=== PATIENT | female | born 1945 | race Caucasian/White ===

== ENCOUNTER → 2017-07-08 | Outpatient (CLI) | payer MEDICARE, BC ==
--- NOTE | 2017-07-08 22:44 | MR ---
EXAMINATION TYPE: MR lumbar spine wo con DATE OF EXAM: 07/08/2017 COMPARISON: Prior MRI lumbar spine January 14, 2015. Prior CT lumbar spine September 09, 2016. HISTORY: HX of Polio, currently having back pain TECHNIQUE: Multiplanar, multisequence imaging of the lumbar spine is performed without IV contrast. FINDINGS: Sagittal images of the lumbar spine show vertebral body heights to remain satisfactory. The re is redemonstration of straightening of lumbar spine. There is redemonstration of prominent posteri or epidural fat or epidural lipomatosis most prominent at L2-L3 level causing posterior spinal canal effacement. There is multilevel disc desiccation redemonstrated. There is redemonstration of advanced disc space narrowing L2-L3 level with heterogeneous endplate changes and moderate spurring. There is redemonstration of moderate to advanced disc space narrowing L3-L4 and L5-S1 levels. There is redemo nstration of heterogeneous increased T1 and T2 signal consistent with Modic type II degenerative gaffney ge at L5-S1 level. The conus medullaris remains normal in position and signal ending at inferior L1 level. There is mild to moderate multilevel anterior spurring. There is diminished T1 and increased T 2 signal mid lumbar spine consistent with Modic type I degenerative change corresponding to sclerosis on CT. Axial images show the T12-L1 level to remain within normal limits. Axial images at the L1-L2 level show increasing broad-based posterior disc protrusion effacing anteri or thecal sac and posterior prominent epidural fat causing increased spinal canal stenosis on axial i mage 23. There is moderate bilateral inferior neural foraminal narrowing at this level. Axial images at L2-L3 level show severe broad disc bulge with left foraminal disc protrusion componen t effacing anterior thecal sac. There is mild facet degenerative changes and ligamentum flavum hypert rophy. There is prominent posterior spinal epidural fat. There is increased spinal canal stenosis at this level on axial image 18. There is moderate left greater than right neural foraminal narrowing at this level identified. Axial images at L3-L4 level show moderate to severe broad disc bulge effacing anterior thecal sac. Th ere is mild to moderate facet degenerative changes and ligament flavum hypertrophy effacing posterior lateral thecal sac with prominent posterior epidural fat. There is moderate to severe left and moder ate right-sided neural foraminal narrowing at this level identified. Prominent spinal canal stenosis is redemonstrated at this level. Axial images at L4-L5 level show moderate facet degenerative changes bilaterally. There is broad disc bulge causing mild bilateral anterior inferior neural foraminal narrowing. There is some effacement of the posterior lateral thecal sac at this level noted. Findings have progressed from prior MRI. Axial images at L5-S1 level show moderate facet degenerative changes bilaterally. There is small cent ral disc protrusion seen. Spinal canal is preserved. There is mild to moderate bilateral anterior inf erior neural foraminal narrowing noted. IMPRESSION: Straightening of lumbar spine with redemonstration of posterior epidural lipomatosis, the re is increasing multilevel degenerative changes causing more prominent spinal canal stenosis versus 2015 MRI most prominent at L2-L3 and L3-L4 levels. Further details are noted as discussed above.
== END ==
LOC: RADMRIMAIN 14:59
PROVIDERS: ATTEND Psychiatry & Neurology Pain Medicine
DX: M54.5 Low back pain (principal); E88.2 Lipomatosis, not elsewhere classified
CPT/HCPCS: 72148

== ENCOUNTER 2018-04-28 06:24 | Day surgery (SDC) | payer MEDICARE, BC ==
[2018-04-25 16:24] VITALS: BMI 27.4
[~2018-04-28 06:24] MED LIST: LACTATED RINGERS 1,000 ML IV SCH
[2018-04-28 07:07] VITALS: RESP 18; TEMP 96.6
[2018-04-28 07:09] LABS: Glucose,Whole Blood 166 mg/dL (75-99)
[2018-04-28] MEDS ORDERED: PROPOFOL 10 MG/ML 20 ML VIAL IV ONE (07:35)
[2018-04-28] MEDS ORDERED: LIDOCAINE 1% INJ 10MG/ML (20 ML MDV) ONE (07:35)
--- NOTE | 2018-04-28 08:08 | P.PCN ---
Date of Procedure: 04/28/18 Procedure(s) Performed: Procedure: Colonoscopy and polypectomy. Preoperative diagnosis: Screening for neoplasia, patient has history of polyps. Postoperative diagnosis: 1. Two small sigmoid polyps snared but no large polyps or cancer. 2. Sigmoid diverticulosis with no evidence of acute diverticulitis or strictures. Preparation: HalfLytely prep. Sedation: Was provided by anesthesia. Brief clinical history: The patient is a 72-year-old female who was scheduled for this evaluation for screening for neoplasia because of history of polyps. Her last exam was in 2012. She has no significant abdominal complaints, bleeding or change in bowel habits. Procedure: With the patient on her left lateral decubitus position and after informed consent and adequate sedation, the perianal area was inspected and it did not show any fissures or fistulas. There were no masses felt on digital rectal examination. The Olympus CFQ 160L video colonoscope was then inserted in the rectum in the usual fashion and advanced to the cecum. There were multiple diverticular orifices seen scattered in the sigmoid and there were 2 small polyps in the distal sigmoid which were snared and retrieved by suction, but there were no large polyps or cancer. I retroflexed the endoscope in the rectum before the endoscope was withdrawn. The patient tolerated the procedure well. Plan: The patient was reassured. Discussed dietary measures. She will follow- up with you as planned and I recommended repeat exam in 5 years depending on her overall health at that time.
[2018-04-28 08:30] VITALS: BP 139/74; PULSE 67
== END 2018-04-28 09:01 | disposition home or self-care (01) ==
LOC: ORWHC2ENDO 06:24
DX: Z12.11 Encounter for screening for malignant neoplasm of colon (principal); K63.5 Polyp of colon; K57.30 Diverticulosis of large intestine without perforation or abscess without bleeding; K21.9 Gastro-esophageal reflux disease without esophagitis; I10 Essential (primary) hypertension; F17.210 Nicotine dependence, cigarettes, uncomplicated; E11.42 Type 2 diabetes mellitus with diabetic polyneuropathy; F34.1 Dysthymic disorder; E78.5 Hyperlipidemia, unspecified; Z79.891 Long term (current) use of opiate analgesic; Z79.84 Long term (current) use of oral hypoglycemic drugs; Z79.899 Other long term (current) drug therapy; Z88.5 Allergy status to narcotic agent; Z88.6 Allergy status to analgesic agent; Z88.8 Allergy status to other drugs, medicaments and biological substances
CPT/HCPCS: 88305; 45385; J2001; J2704

== ENCOUNTER 2019-07-10 07:02 | Day surgery (SDC) | payer MEDICARE, BC ==
[2019-07-06 10:02] VITALS: BMI 25.0
[2019-07-10] MEDS ORDERED: LACTATED RINGERS 1,000 ML IV ONE (07:23)
[2019-07-10 07:31] VITALS: TEMP 97.6
[2019-07-10 07:34] LABS: Glucose,Whole Blood 124 mg/dL (75-99)
[2019-07-10] MEDS ORDERED: PROPOFOL 10 MG/ML 20 ML VIAL IV ONE (07:41)
[2019-07-10 08:04] VITALS: PULSE 61; RESP 16
--- NOTE | 2019-07-10 08:06 | P.PCN ---
Date of Procedure: 07/10/19 Description of Procedure: BRIEF HISTORY: Patient is a 73-year-old, pleasant, female with a medical history significant for GERD who presents for outpatient EGD. The patient reports GERD previously controlled with Zantac therapy. She has stopped taking medication secondary to a recent recall the medication. PROCEDURE PERFORMED: Esophagogastroduodenoscopy with biopsy. PREOPERATIVE DIAGNOSIS: GERD. ESTIMATED BLOOD LOSS: Minimal. IV sedation per anesthesia. PROCEDURE: After informed consent was obtained, the patient was brought into the endoscopy unit. IV sedation was administered by Anesthesia under continuous monitoring. Initially the Olympus GIF-190 video endoscope was inserted into the mouth. Esophagus intubated without any difficulty. It was gradually advanced into the stomach and duodenum and carefully examined. The bulb and the second part of the duodenum appeared normal, with biopsies taken. The scope at this time was withdrawn to the stomach, adequately insufflated with air, and upon careful examination, mucosa of the antrum, body, cardia and the fundus appeared normal, except for some mild scattered erythema in the antrum and nodularity of the body suggestive of mild gastritis with biopsies of antrum and body taken. The scope was then withdrawn into the esophagus. The GE junction was located at 39 cm from the incisors with biopsies taken, 1 cm hiatal hernia noted. The esophagus appeared normal, with metastatic esophageal biopsies taken. There were no ero sions or ulcerations seen and the patient tolerated the procedure well. IMPRESSION: 1. Mild gastritis antrum and body, biopsied. 2. Biopsies of the duodenum, GE junction and mid esophagus. 3. Small hiatal hernia.. RECOMMENDATIONS: The findings of this examination were discussed with the patient and her . Okay to resume diet. Await pathology from biopsies. Patient reports that she is going to schedule appointment with her primary doctor for further discussion on reflux medications.
[2019-07-10 08:26] VITALS: BP 135/87
== END 2019-07-10 08:43 | disposition home or self-care (01) ==
LOC: ORWHC2ENDO 07:02
PROVIDERS: ATTEND Internal Medicine
DX: K29.80 Duodenitis without bleeding (principal); K31.9 Disease of stomach and duodenum, unspecified; K21.0 Gastro-esophageal reflux disease with esophagitis; K44.9 Diaphragmatic hernia without obstruction or gangrene; E11.9 Type 2 diabetes mellitus without complications; F17.210 Nicotine dependence, cigarettes, uncomplicated; Z98.49 Cataract extraction status, unspecified eye; Z79.84 Long term (current) use of oral hypoglycemic drugs; Z79.899 Other long term (current) drug therapy; Z88.6 Allergy status to analgesic agent; Z88.5 Allergy status to narcotic agent; Z88.8 Allergy status to other drugs, medicaments and biological substances
CPT/HCPCS: 88305; 43239; J2704

== ENCOUNTER → 2021-06-21 | Outpatient (CLI) | payer BC, MEDICARE ==
[2021-06-21 21:01] LABS: % Iron Saturation 16.15 (12.00-45.00); Ferritin 91.6 ng/mL (10.0-291.0); Iron 56 ug/dL (50-170); Total Iron Binding Capacity 349 ug/dL (228-460)
[2021-06-21 21:08] LABS: Folate, Serum >20.00 ng/mL (4.40-31.00)
[2021-06-24 08:35] LABS: Vit B1(Thiamine) 145 ug/L (38-122)
== END | disposition home or self-care (01) ==
LOC: LABWHC1 06-13 14:16
PROVIDERS: ATTEND Psychiatry & Neurology Pain Medicine
DX: R53.83 Other fatigue (principal); R63.4 Abnormal weight loss
CPT/HCPCS: 36415; 82607; 82728; 82746; 83540; 83550; 84207; 84425; 84439; 84443; 84466; 84481; 84591